=== PATIENT | male | born 1940 | race Caucasian/White ===

== ENCOUNTER → 2016-12-11 | Outpatient (CLI) | payer MEDICARE, OTHER ==
[~2016-12-11] MED LIST: HCT25T PO; LISI10TA PO
--- NOTE | 2016-12-11 17:07 | Diagnostic Imaging Report ---
PROCEDURE: MRI left joint lower extremity without contrast. TECHNIQUE: Multiplanar, multisequence MR imaging of the left knee was performed without contrast. COMPARISON: None available. INDICATION: Chronic left knee pain and stiffness. FINDINGS: MENISCI Medial meniscus: Degenerative free edge truncation of the posterior horn of the medial meniscus. Irregularity of the superior articular surface of the posterior horn is also likely due to degenerative tearing. Degenerative truncation of the free edge of the body of the medial meniscus. Body of the medial meniscus is partially extruded into the medial gutter. Lateral meniscus: Normal. LIGAMENTS ACL: ACL is intact with mild mucoid degeneration. PCL: Intact. MCL: Intact. LCL: The lateral collateral ligamentous complex is intact. EXTENSOR MECHANISM The extensor mechanism is intact. CARTILAGE Medial compartment: Diffuse chondral wear throughout the medial compartment, with a few scattered foci of full-thickness chondromalacia in the central weightbearing portion. Lateral compartment: The lateral compartment articular cartilage is preserved without high-grade chondromalacia. Patellofemoral compartment: Low-grade partial-thickness surface fibrillation of the patellar apex articular cartilage. No full-thickness chondromalacia in the patellofemoral compartment. BONE No fracture, stress fracture or osteonecrosis. SOFT TISSUE: No knee joint effusion. Small Tabares's cyst. IMPRESSION: 1. Mild degenerative free edge tearing of the posterior horn and body of the medial meniscus. No displaced meniscal fragments. 2. Diffuse chondral wear throughout the medial compartment with a few scattered foci of superimposed full-thickness chondral fissuring in the weightbearing portion of the medial femoral condyle. 3. Low-grade partial-thickness chondral loss in the patella. 4. Small Tabares's cyst. Dictated by: Dictated on workstation # [id number]
== END ==
LOC: RAD 16:04
PROVIDERS: ATTEND Orthopaedic Surgery
DX: M23.8X2 Other internal derangements of left knee (principal); M71.22 Synovial cyst of popliteal space [Baker], left knee
CPT/HCPCS: 73721

== ENCOUNTER 2017-01-16 10:20 | Outpatient (RCR) | payer MEDICARE, OTHER | END 2017-02-12 08:36 | disposition home or self-care (01) | PROVIDERS: ATTEND Orthopaedic Surgery | DX: M25.562 Pain in left knee (principal); M25.662 Stiffness of left knee, not elsewhere classified ==

== ENCOUNTER 2017-03-19 08:21 | Emergency (ER) | payer MEDICARE, OTHER ==
[~2017-03-19] VITALS: Ht 185.4 cm; Wt 80.7 kg
[2017-03-19] MEDS ORDERED: LACTATED RINGERS 1,000 ML IV ONE (08:23)
[2017-03-19] MEDS ORDERED: FAMOTIDINE 20MG/2ML IV (PEPCID) IV STA (08:23)
[2017-03-19] MEDS ORDERED: ONDANSETRON 4 MG/2 ML (SDV) Z0FRAN IVP ONE (08:30)
[2017-03-19 08:40] LABS: BASOPHILS % (AUTO) 0 % (0-10); EOSINOPHILS % (AUTO) 0 % (0-10); LYMPHOCYTES # (AUTO) 1.6 X 10^3 (1.0-4.0); LYMPHOCYTES % (AUTO) 15 % (12-44); MEAN CORPUSCULAR HEMOGLOBIN 29 PG (25-34); MEAN CORPUSCULAR HGB CONC 35 G/DL (32-36); MEAN CORPUSCULAR VOLUME 85 FL (80-99); MEAN PLATELET VOLUME 11.1 FL (7.4-10.4); MONOCYTES # (AUTO) 0.6 X 10^3 (0.0-1.0); MONOCYTES % (AUTO) 6 % (0-12); NEUTROPHILS # (AUTO) 8.2 X 10^3 (1.8-7.8); NEUTROPHILS % (AUTO) 79 % (42-75); PLATELET COUNT 317 10^3/uL (130-400); RED CELL DISTRIBUTION WIDTH 14.9 % (10.0-14.5); WHITE BLOOD COUNT 10.3 10^3/uL (4.3-11.0)
[2017-03-19] MEDS ORDERED: PANTOPRAZOLE 40 MG/10 ML (PROTONIX) VIAL IV ONE (08:45)
[2017-03-19] MEDS ORDERED: SCOPOLAMINE 1.5 MG (TRANSDERM-SCOP) PATCH TD ONE (08:45)
[2017-03-19] MEDS ORDERED: MECLIZINE 25 MG (ANTIVERT) TAB PO ONE (08:45)
[2017-03-19 08:52] LABS: PROTHROMBIN TIME PATIENT 12.8 SEC (12.2-14.7)
[2017-03-19 08:59] LABS: ALANINE AMINOTRANSFERASE 16 U/L (0-55); ALBUMIN 4.2 GM/DL (3.2-4.5); AMYLASE 46 U/L (25-125); ANION GAP 14 MMOL/L (5-14); ASPARTATE AMINO TRANSFERASE 19 U/L (5-34); BLOOD UREA NITROGEN 14 MG/DL (7-18); BUN/CREATININE RATIO 17; CALCIUM 9.9 MG/DL (8.5-10.1); CARBON DIOXIDE 25 MMOL/L (21-32); CHLORIDE 98 MMOL/L (98-107); CREATININE SERUM 0.84 MG/DL (0.60-1.30); GFR ESTIMATED > 60; GLUCOSE 153 MG/DL (70-105); LIPASE 15 U/L (8-78); POTASSIUM 3.2 MMOL/L (3.6-5.0); SODIUM 137 MMOL/L (135-145); TOTAL PROTEIN 7.3 GM/DL (6.4-8.2)
--- NOTE | 2017-03-19 09:16 | ED General ---
General Chief Complaint: Abdominal/GI Problems Stated Complaint: WEAKNESS Nursing Triage Note: PT TO RM 8 BY [facility] WITH CC OF VOMITING AND WEAKNESS FOR A COUPLE DAYS. Nursing Sepsis Screen: No Definite Risk Source of Information: Patient, EMS History of Present Illness Time Seen by Provider: 08:22 Initial Comments PT ARRIVES VIA EMS FROM HOME PT STATES HE ROLLED OVER AND WAS GETTING OUT OF BED YESTERDAY MORNING AND SUDDENLY BECAME VERY DIZZY--STATES IS A SPINNING SENSATION DIZZINESS IS MUCH WORSE WITH ANY MOVEMENT AND IS BETTER IF HE LAYS STILL WAS UNABLE TO STAND/ AMBULATE TODAY DUE TO DIZZINESS AFTER THE DIZZINESS STARTED, THEN HE BECAME NAUSEATED AND VOMITED A COUPLE OF TIMES TODAY--EMS GAVE ZOFRAN 4 MG WITH SOME IMPROVEMENT IN NAUSEA SYMPTOMS ARE WORSE TODAY NO HEADACHE NO VISION CHANGES NO CHEST PAIN NO SHORTNESS OF BREATH NO PALPITATIONS NO PARESTHESIAS OR MOTOR DEFICITS NO SWEATS HAS MILD EPIGASTRIC DISCOMFORT / "HEARTBURN" SINCE HE THREW UP PT WAS SEEN BY DR. STEINBERG YESTERDAY FOR ROUTINE EXAM AND MENTIONED DIZZINESS-- THOUGHT WAS DUE TO PT'S ELEVATED BP IN THE OFFICE. NO TESTS OR RX PT HAS MRI OF LOWER BACK SCHEDULED TODAY FOR CHRONIC BACK PAIN--HAD BACK SURGERY A COUPLE OF YEARS AGO, AND IS HAVING PAIN AGAIN PT ALSO HAS CHRONIC NECK PAIN BUT IS NOT HURTING NOW. PCP: DR. STEINBERG Allergies and Home Medications Allergies Coded Allergies: Meperidine (Unverified Allergy, Mild, 09/08/08) Home Medications Famotidine 40 Mg Tablet, 40 MG PO DAILY, #30 Prescribed by: ROGELIO SAMPSON on 03/19/17 1011 Hydrochlorothiazide 25 Mg Tab, 25 MG PO DAILY, (Reported) Lisinopril 10 Mg Tablet, 10 MG PO DAILY, (Reported) Meclizine HCl 25 Mg Tablet, 25-50 MG PO Q6H, #30 Prescribed by: ROGELIO SAMPSON on 03/19/17 1011 Ondansetron 4 Mg Tab.rapdis, 4 MG PO Q4H, #10 Prescribed by: ROGELIO SAMPSON on 03/19/17 1012 Scopolamine 1 Each Patch.td72, 1 EACH TD Q72 HOURS, #3 Prescribed by: ROGELIO SAMPSON on 03/19/17 1011 Constitutional: see HPI, No diaphoresis, dizziness, No fever, No malaise, No weakness EENTM: no symptoms reported Respiratory: no symptoms reported Cardiovascular: no symptoms reported Gastrointestinal: see HPI, No abdominal pain, nausea, vomiting Genitourinary: no symptoms reported Musculoskeletal: no symptoms reported Skin: no symptoms reported Psychiatric/Neurological: No Symptoms Reported Hematologic/Lymphatic: No Symptoms Reported Past Kukeivd-Ncqpve-Mlsndn Hx Patient Social History Alcohol Use: Rarely Uses Alcohol Beverage of Choice: Beer Recreational Drug Use: No Smoking Status: Never a Smoker Recent Foreign Travel: No Contact w/Someone Who Travel: No Recent Infectious Disease Expo: No Recent Hopitalizations: No Seasonal Allergies Seasonal Allergies: No Surgeries History of Surgeries: Yes (BACK, HERNIA X'S 3, SPLENECTOMY;BILATERAL SHOULDER SCOPES; BILATERAL CARPAL TUNNEL SURGERY: BILATERAL TRIGGER FINGER SURGERY; LEFT KNEE SCOPE) Surgeries: Abdominal, Orthopedic Respiratory History of Respiratory Disorde: No Cardiovascular History of Cardiac Disorders: Yes Cardiac Disorders: Hypertension Neurological History of Neurological Disord: No Reproductive System Hx Reproductive Disorders: No Sexually Transmitted Disease: No Genitourinary History of Genitourinary Disor: Yes Genitourinary Disorders: Prostate Problems Gastrointestinal History of Gastrointestinal Di: Yes (HX OF SPASTIC COLON) Gastrointestinal Disorders: Abdominal Hernia Musculoskeletal History of Musculoskeletal Dis: Yes (CHRONIC NECK AND BACK PAIN ) Musculoskeletal Disorders: Arthritis, Chronic Back Pain Endocrine History of Endocrine Disorders: No HEENT History of HEENT Disorders: Yes Hearing Impairment: Hard of Hearing, Bilateral Hearing Aide Cancer History of Cancer: No Psychosocial History of Psychiatric Problem: No Integumentary History of Skin or Integumenta: No Blood Transfusions History of Blood Disorders: No Physical Exam Vital Signs Vital Sign - Last 12Hours 03/19/17 08:28 Temp 97.7 Pulse 65 Resp 18 B/P (MAP) 148/77 Pulse Ox 98 O2 Delivery Room Air Capillary Refill : Less Than 3 Seconds General Appearance: No Apparent Distress, WD/WN HEENT: PERRL/EOMI, TMs Normal (EXCEPT MILDLY SCLEROTIC), Normal ENT Inspection , Pharynx Normal, Other (BILATERAL HEARING AIDS PRESENT) Neck: Full Range of Motion, Normal Inspection, Non Tender, Supple, No Carotid Bruit, No JVD Respiratory: Normal Breath Sounds, No Accessory Muscle Use, No Respiratory Distress Cardiovascular: Regular Rate, Rhythm, No Edema, No JVD, No Murmur, Normal Peripheral Pulses Gastrointestinal: Normal Bowel Sounds, No Organomegaly, No Pulsatile Mass, Non Tender, Soft Back: No CVA Tenderness Extremity: Normal Capillary Refill, Normal Inspection, Normal Range of Motion, Non Tender, No Calf Tenderness, No Pedal Edema Neurologic/Psychiatric: Alert, Oriented x3, No Motor/Sensory Deficits, Normal Mood/Affect, 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4-10.4 FL Neutrophils (%) (Auto) 79 H 42-75 % Lymphocytes (%) (Auto) 15 12-44 % Monocytes (%) (Auto) 6 0-12 % Eosinophils (%) (Auto) 0 0-10 % Basophils (%) (Auto) 0 0-10 % Neutrophils # (Auto) 8.2 H 1.8-7.8 X 10^3 Lymphocytes # (Auto) 1.6 1.0-4.0 X 10^3 Monocytes # (Auto) 0.6 0.0-1.0 X 10^3 Eosinophils # (Auto) 0.0 0.0-0.3 10^3/uL Basophils # (Auto) 0.0 0.0-0.1 10^3/uL Prothrombin Time 12.8 12.2-14.7 SEC INR Comment 1.0 0.8-1.4 Activated Partial Thromboplast Time 23 L 24-35 SEC Sodium Level 137 135-145 MMOL/L Potassium Level 3.2 L 3.6-5.0 MMOL/L Chloride Level 98 98-107 MMOL/L Carbon Dioxide Level 25 21-32 MMOL/L Anion Gap 14 5-14 MMOL/L Blood Urea Nitrogen 14 7-18 MG/DL Creatinine 0.84 0.60-1.30 MG/DL Estimat Glomerular Filtration Rate > 60 BUN/Creatinine Ratio 17 Glucose Level 153 H 70-105 MG/DL Calcium Level 9.9 8.5-10.1 MG/DL Magnesium Level 2.0 1.8-2.4 MG/DL Total Bilirubin 2.0 H 0.1-1.0 MG/DL Aspartate Amino Transf (AST/SGOT) 19 5-34 U/L Alanine Aminotransferase (ALT/SGPT) 16 0-55 U/L Alkaline Phosphatase 71 40-136 U/L Troponin I < 0.30 <0.30 NG/ML Total Protein 7.3 6.4-8.2 GM/DL Albumin 4.2 3.2-4.5 GM/DL Amylase Level 46 25-125 U/L Lipase 15 8-78 U/L TSH [place] Testing 0.90 0.35-4.94 UIU/ML Urine Color DELANEY H Urine Clarity SLIGHTLY CLOUDY Urine pH 7 5-9 Urine Specific [place] 1.015 L 1.016-1.022 Urine Protein 1+ H NEGATIVE Urine Glucose (UA) NEGATIVE NEGATIVE Urine Ketones 4+ H NEGATIVE Urine Nitrite NEGATIVE NEGATIVE Urine Bilirubin NEGATIVE NEGATIVE Urine Urobilinogen 1 NORMAL MG/DL Urine Leukocyte Esterase 1+ H NEGATIVE Urine RBC (Auto) NEGATIVE NEGATIVE Urine RBC RARE /HPF Urine WBC 0-2 /HPF Urine Squamous Epithelial Cells RARE /HPF Urine Crystals NONE /LPF Urine Bacteria NEGATIVE /HPF Urine Casts PRESENT /LPF Urine Hyaline Casts RARE /LPF Urine Mucus SMALL H /LPF Urine Culture Indicated NO My Orders Orders - ROGELIO SAMPSON DO Saline Lock/Iv-Start (03/19/17 08:23) Monitor-Rhythm Ecg Trace Only (03/19/17 08:23) Amylase (03/19/17 08:23) Cbc With Automated Diff (03/19/17 08:23) Comprehensive Metabolic Panel (03/19/17 08:23) Lipase (03/19/17 08:23) Ua Culture If Indicated (03/19/17 08:23) Saline Lock/Iv-Start (03/19/17 08:23) Lactated Ringers (Lr 1000 Ml Iv Solution (03/19/17 08:23) Ondansetron Injection (Zofran Injectio (03/19/17 08:30) Famotidine Injection (Pepcid Injection) (03/19/17 08:23) Pantoprazole Injection (Protonix Injecti (03/19/17 08:45) Scopolamine Patch (Transderm-Scop Patch) (03/19/17 08:45) Meclizine Tablet (Antivert Tablet) (03/19/17 08:45) Magnesium (03/19/17 08:37) Protime With Inr (03/19/17 08:37) Partial Thromboplastin Time (03/19/17 08:37) Thyroid Analyzer (03/19/17 08:37) Troponin I (03/19/17 08:37) Ct Head Wo (03/19/17 08:37) Ekg Tracing (03/19/17 09:53) Medications Given in ED Current Medications Medications Dose Ordered Sig/Josefa Route Start Time Stop Time Status Last Admin Dose Admin Lactated Ringer's 1,000 ml @ 0 mls/hr Q0M ONCE IV 03/19/17 08:23 03/19/17 08:25 DC 03/19/17 09:05 1,000 MLS/HR Meclizine HCl 50 mg ONCE ONCE PO 03/19/17 08:45 03/19/17 08:46 DC 03/19/17 09:06 50 MG Ondansetron HCl 4 mg ONCE ONCE IVP 03/19/17 08:30 03/19/17 08:31 DC 03/19/17 09:06 4 MG Pantoprazole 40 mg ONCE ONCE IV 03/19/17 08:45 03/19/17 08:46 DC 03/19/17 09:06 40 MG Scopolamine 1.5 mg ONCE ONCE TD 03/19/17 08:45 03/19/17 08:46 DC 03/19/17 09:06 1.5 MG Vital Signs/I&O Vital Sign - Last 12Hours 03/19/17 03/19/17 08:28 10:29 Temp 97.7 97.0 Pulse 65 60 Resp 18 18 B/P (MAP) 148/77 Pulse Ox 98 97 O2 Delivery Room Air Blood Pressure Mean: 100 Progress Note : Progress Note PT ABLE TO STAND AND AMBULATE A SHORT DISTANCE WITHOUT DIFFICULTY, ON HIS OWN PRIOR TO DISMISSAL NAUSEA RESOLVED AND DIZZINESS IMPROVED PRIOR TO DISMISSAL ECG Initial ECG Impression Time: 09:55 Initial ECG Rate: 58 Initial ECG Rhythm: Normal Sinus (PAC) Initial ECG Comparisson: No Previous ECG Available Diagnostic Imaging Comments CT HEAD--NO ACUTE PROCESS, CHRONIC CHANGES--PER RADIOLOGIST REPORT @ 0959 Reviewed: Reviewed by Me Departure Impression Impression: Primary Impression: Acute onset of vertigo with vomiting and inability to stand Disposition: 01 HOME, SELF-CARE Condition: Improved Departure-Patient Inst. Referrals: NO,LOCAL PHYSICIAN (PCP/Family) Primary Care Physician Patient Instructions: VERTIGO, Vertigo (a Type of Dizziness) (DC) Add. Discharge Instructions: SLOW POSITION CHANGES LOTS OF FLUIDS FOLLOW UP WITH YOUR DR IN 2-3 DAYS FOR FURTHER CARE RETURN TO ER IF WORSE All discharge instructions reviewed with patient and/or family. Voiced understanding. Scripts Ondansetron (Zofran Odt) 4 Mg Tab.rapdis 4 MG PO Q4H for Nausea/Vomiting, #10 TAB Prov: ROGELIO SAMPSON DO 03/19/17 Scopolamine (Transderm-Scop) 1 Each Patch.td72 1 EACH TD Q72 HOURS for Dizziness, #3 PATCH Prov: ROGELIO SAMPSON DO 03/19/17 Famotidine (Pepcid) 40 Mg Tablet 40 MG PO DAILY, #30 TAB Prov: ROGELIO SAMPSON DO 03/19/17 Meclizine HCl (Meclizine HCl) 25 Mg Tablet 25-50 MG PO Q6H for Dizziness, #30 TAB Prov: ROGELIO SAMPSON DO 03/19/17 ROGELIO SAMPSON DO Mar 19, 2017 09:16
[2017-03-19 09:20] LABS: TROPONIN I < 0.30 NG/ML (<0.30)
--- NOTE | 2017-03-19 09:38 | Diagnostic Imaging Report ---
PROCEDURE: CT head without contrast. TECHNIQUE: Multiple contiguous axial images were obtained through the brain without the use of intravenous contrast. INDICATION: Weakness and dizziness. No priors. FINDINGS: There is mild cerebral cortical atrophy not unremarkable given the age. There is also some mild periventricular white matter hypodensity, while nonspecific often attributed to the sequelae of chronic small vessel disease and also not felt to remarkable finding in a patient of this age. There was no evidence for focal or generalized cerebral edema. There is no mass or mass effect and there is no evidence for intracranial hemorrhage. No findings of elevation of the intracranial pressures. The orbits, sinuses and calvarium unremarkable. IMPRESSION: Mild chronic likely senescent change, no hemorrhage, edema or acute appearing abnormality. Dictated by: Dictated on workstation # [id number]
[2017-03-19 09:56] LABS: BILIRUBIN,URINE NEGATIVE (NEGATIVE); KETONES,URINE 4+ (NEGATIVE); LEUKOCYTE ESTERASE ,URINE 1+ (NEGATIVE); NITRITE,URINE NEGATIVE (NEGATIVE); PH,URINE 7 (5-9); PROTEIN,URINE 1+ (NEGATIVE); UROBILINOGEN,URINE 1 MG/DL (NORMAL)
[2017-03-19 10:05] LABS: HYALINE CASTS, URINE RARE /LPF; SQUAMOUS EPITHELIAL CELL,UR RARE /HPF; WBC,URINE 0-2 /HPF
[2017-03-19] MEDS ORDERED: MECL-106 PO (10:11)
[2017-03-19] MEDS ORDERED: FAMO40TA72 PO (10:11)
[2017-03-19] MEDS ORDERED: SCOP1PAT TD (10:11)
[2017-03-19] MEDS ORDERED: ONDA4TAB8 PO (10:12)
[2017-03-19 10:29] VITALS: BP 135/70
--- OUTSIDE RECORDS SUMMARY | 2017-03-19 11:13 | XMS REPORT | Continuity of Care Document ---
Author Author [facility] Address Unknown Phone Unavailable Allergies Active Description Code Type Severity Reaction Onset Reported/Identified Relationship to Patient Clinical Status Yes meperidine [id number] Drug Allergy Mild N/A 09/08/2008 Medications Problems Date Dx Coded Attending Type Code Diagnosis Diagnosed By 08/22/2011 Ot 401.9 HYPERTENSION NOS 02/28/2012 Ot 702.0 ACTINIC KERATOSIS 02/28/2012 Ot 706.2 SEBACEOUS CYST 06/01/2013 MITCHELL ALDANA DO V04.81 FLU SHOT 01/24/2015 Ot 719.47 01/24/2015 Ot 401.9 01/24/2015 Ot 706.2 01/24/2015 Ot 709.9 01/24/2015 Ot V72.63 01/24/2015 Ot V72.81 01/24/2015 Ot V74.8 02/14/2015 Ot 719.47 02/14/2015 Ot 401.9 02/14/2015 Ot 706.2 02/14/2015 Ot 709.9 02/14/2015 Ot V72.63 02/14/2015 Ot V72.81 02/14/2015 Ot V74.8 02/14/2015 NICOLE DO, PASCUAL F Ot 722.52 02/16/2015 NICOLE DO, PASCUAL F Ot 722.52 02/18/2015 NICOLE DO, PASCUAL F Ot 721.3 02/18/2015 NICOLE DO, PASCUAL F Ot V57.1 03/22/2015 NICOLE DO, PASCUAL F Ot 722.52 03/25/2015 NICOLE DO, PASCUAL F Ot 721.3 03/25/2015 NICOLE DO, PASCUAL F Ot V57.1 04/20/2015 NICOLE DO, PASCUAL F Ot 721.3 04/20/2015 NICOLE DO, PASCUAL F Ot V57.1 04/25/2015 NICOLE DO, PASCUAL F Ot 721.3 LUMBOSACRAL SPONDYLOSIS 04/25/2015 PASCUAL RIVERA DO Ot V57.1 PHYSICAL THERAPY NEC 09/19/2015 Ot 719.47 09/19/2015 Ot 401.9 09/19/2015 Ot 706.2 09/19/2015 Ot 709.9 09/19/2015 Ot V72.63 09/19/2015 Ot V72.81 09/19/2015 Ot V74.8 09/19/2015 PASCUAL RIVERA DO Ot 722.52 10/12/2015 BOYD CHAIREZ FACC, ALI FACP CCDS Ot I10 10/12/2015 BOYD CHAIREZ FACC, ALI FACP CCDS Ot I49.9 10/12/2015 BOYD CHAIREZ FACC, ALI FACP CCDS Ot M54.5 10/13/2015 BOYD CHAIREZ FACC, ALI FACP CCDS Ot I10 10/13/2015 BOYD CHAIREZ FACC, ALI FACP CCDS Ot I49.9 10/13/2015 BOYD CHAIREZ FACC, ALI FACP CCDS Ot M54.5 01/05/2016 JAQUI GATES Ot M62.81 MUSCLE WEAKNESS (GENERALIZED) 01/05/2016 JAQUI GATES Ot Z98.1 ARTHRODESIS STATUS 12/11/2016 Ot 719.47 JOINT PAIN-ANKLE 12/11/2016 Ot 401.9 HYPERTENSION NOS 12/11/2016 Ot 706.2 SEBACEOUS CYST 12/11/2016 Ot 709.9 SKIN DISORDER NOS 12/11/2016 Ot V72.63 PRE-PROCEDURAL LABORATORY EXAMINATION 12/11/2016 Ot V72.81 [id number] CARDIOVASCULAR 12/11/2016 Ot V74.8 SCREEN-BACTERIAL DIS NEC 12/11/2016 PASCUAL RIVERA DO Ot 722.52 LUMB/LUMBOSAC DISC DEGEN 12/11/2016 BOYD CHAIREZ FACC, ALI FACP CCDS Ot I10 ESSENTIAL (PRIMARY) HYPERTENSION 12/11/2016 BOYD CHAIREZ FACC, ALI FACP CCDS Ot I49.9 CARDIAC ARRHYTHMIA, UNSPECIFIED 12/11/2016 BOYD CHAIREZ FACC, ALI FACP CCDS Ot M54.5 LOW BACK PAIN 12/11/2016 BOYD CHAIREZ FACC, ALI FACP CCDS Ot I10 ESSENTIAL (PRIMARY) HYPERTENSION 12/11/2016 BOYD CHAIREZ FACC, ALI FACP CCDS Ot I49.9 CARDIAC ARRHYTHMIA, UNSPECIFIED 12/11/2016 BOYD CHAIREZ FACC, MACHO BEGUM CCDS Ot M54.5 LOW BACK PAIN 12/12/2016 PASCUAL RIVERA DO Ot M23.8X2 OTHER INTERNAL DERANGEMENTS OF LEFT KNEE 12/12/2016 NICOLE GAMEZ, PASCUAL Castillo Ot 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 Visit Date/Time Discharge Status Pt. Type Provider Facility Loc./Unit Complaint [id number] 06/01/2013 08:58:00 06/01/2013 23: 59:59 CLS Outpatient MITCHELL ALDANA DO [id number] 06/02/2012 13:45:01 RECURRING [id number] 01/16/2017 10:20:00 2016 08:36:00 DIS Outpatient NICOLE DO PASCUAL Castillo [facility] RE[facility] LT KNEE PAIN AND STIFFNESS [id number] 12/11/2016 16:04:00 2016 23:59:59 CLS Outpatient NICOLE DO PASCUAL Castillo [facility] RAD LT KNEE PAIN,STIFFNESS/ WEAKNESS [id number] 01/05/2016 12:53:00 2015 14:26:00 DIS Outpatient JAQUI GATES [facility] RE[facility] S/P L3-5 FUSION; L LEG WEAKNESS [id number] 09/22/2015 07:29:00 2015 23:59:59 CLS Outpatient BOYD CHAIREZ FACC, MACHO BEGUM CCDS [facility] CARD CARDIAC ARRTHYMIA [id number] 09/19/2015 09:38:00 2015 23:59:59 CLS Outpatient BOYD CHAIREZ FACC, MACHO BEGUM CCDS [facility] CARD CARDIAC ARRHYTMIA [id number] 03/31/2015 11:15:00 2014 14:13:00 DIS Outpatient PASCUAL RIVERA DO [facility] RE[facility] LUMBAR SPONDYLOSIS;LUMBAR SPINAL STENOSIS [id number] 01/24/2015 10:37:00 2014 23:59:59 CLS Outpatient PASCUAL RIVERA DO [facility] RAD DDD [id number] 01/24/2015 10:36:00 Document Registration [id number] 01/24/2015 10:36:00 Document Registration [id number] 01/24/2015 10:36:00 Document Registration [id number] 08/22/2011 10:24:00 Document Registration
--- OUTSIDE RECORDS SUMMARY | 2017-03-19 11:13 | XMS REPORT ---
Author MITCHELL Carrasquillo Organization [employer] Address Unknown Phone Unavailable Care Team Providers Care Truck Guard Name Role Phone MITCHELL ALDANA CP Unavailable Allergies No Known Allergies Problems Problem Type Condition Code Onset Dates Condition Status Assessment Encounter for immunization Z23 Active Problem Need for prophylactic vaccination and inoculation, Influenza V04.81 Active Medications No Known Medications Procedures Procedure Coding System Code Date SINGLE IMMUNIZATION ADMIN CPT-4 51341 May 16, 2015 FLUARIX QUAD (3 & UP)-GSK-2014 CPT-4 94433 May 16, 2015 Results No Known Results Immunizations Vaccine Administration Date FLUARIX QUAD (3 & UP)-GSK-2014May 16, 2015 Summary Purpose [employer] Submission
--- OUTSIDE RECORDS SUMMARY | 2017-03-19 11:13 | XMS REPORT ---
Author MITCHELL Carrasquillo [employer] Address Unknown Phone Unavailable Care Team Providers Care Manager Of Product Name Role Phone MITCHELL ALDANA CP Unavailable Allergies, Adverse Reactions, Alerts Substance Reaction Event Type N.K.D.A. Info Not Available Non Drug Allergy Problems Problem Type Condition Code Onset Dates Condition Status Assessment Encounter for immunization Z23 Active Problem Need for prophylactic vaccination and inoculation, Influenza V04.81 Active Medications No Known Medications Procedures Procedure Coding System Code Date SINGLE IMMUNIZATION ADMIN CPT-4 93876 May 29, 2016 FLUZONE HIGH DOSE 65 AND UP 2015 CPT-4 93820 May 29, 2016 Results No Known Results Immunizations Vaccine Administration Date FLUZONE HIGH DOSE 65 AND UP 2015May 29, 2016 Summary Purpose [employer] Submission
== END 2017-03-19 10:29 | disposition home or self-care (01) ==
LOC: EDUNIT# 08:21 → ER 08:22
DX: R42 Dizziness and giddiness (principal); R11.2 Nausea with vomiting, unspecified; R26.89 Other abnormalities of gait and mobility; I10 Essential (primary) hypertension; M19.90 Unspecified osteoarthritis, unspecified site; Z87.19 Personal history of other diseases of the digestive system; Z90.81 Acquired absence of spleen
CPT/HCPCS: 36415; 70450; 80053; 81000; 82150; 83690; 83735; 84443; 84484; 85025; 85610; 85730; 93005; 93041; 96361; 96374; 96375

== ENCOUNTER → 2017-06-19 | Outpatient (CLI) | payer MEDICARE, OTHER ==
[~2017-06-19] MED LIST changes: +FAMO40TA72 PO; +MECL-106 PO; +ONDA4TAB8 PO; +SCOP1PAT TD
--- NOTE | 2017-06-19 19:20 | Diagnostic Imaging Report ---
PROCEDURE: US Carotid Duplex Bilateral. TECHNIQUE: Multiple real-time grayscale images were obtained over the carotid arteries in various projections bilaterally. Additional duplex Doppler and color Doppler images were also obtained. INDICATION: Dizziness. FINDINGS: There is minimal plaque along the carotid bifurcation seen, more on the left side. Color Doppler demonstrates patency of the common, internal and external carotid arteries bilaterally. There is antegrade flow in the vertebral arteries. Peak systolic velocities in the right ICA are 92 cm/s, 90 cm/s and 80 cm/s from proximal to distal and on the left 84 cm/s, 90 cm/s, and 103 cm/s. ICA/CCA ratios are up to 1 on the right and 1.1 on the left. IMPRESSION: Minimal plaque seen. Underlying estimated degree of stenosis is in the range of 0-25% bilaterally. Dictated on workstation # [id number]
== END ==
LOC: RAD 14:39
PROVIDERS: ATTEND Family Medicine
DX: R42 Dizziness and giddiness (principal)
CPT/HCPCS: 93880

== ENCOUNTER 2018-02-06 14:13 | Outpatient (RCR) | payer MEDICARE, OTHER ==
[~2018-02-06 14:13] MED LIST changes: -SCOP1PAT TD; +SCOP1PAT11 TD
== END 2018-02-06 16:33 | disposition home or self-care (01) ==
PROVIDERS: ATTEND Physician Assistant
DX: M54.5 Low back pain (principal); Z98.1 Arthrodesis status

== ENCOUNTER → 2018-11-06 | Outpatient (CLI) | payer MEDICARE, OTHER ==
[~2018-11-06] MED LIST changes: +BARIUM SUSPENSION 105% (LIQUID POLIBAR PLUS) 240 ML/DOSE PO ONE; +BARIUM SUSPENSION 60% (LIQUID EZ PAQUE) 240 ML DOSE PO ONE
--- NOTE | 2018-11-06 12:26 | Diagnostic Imaging Report ---
INDICATION: Gastroesophageal reflux. FINDINGS: The preliminary radiograph demonstrates a nonspecific bowel gas pattern. The esophageal motility was assessed fluoroscopically. There is relatively satisfactory efficacy of prior peristaltic wave. There are a few tertiary contractions likely reflecting some mild presbyesophagus. Esophageal mucosa is unremarkable. There are no intrinsic or extrinsic esophageal masses. There is a small hiatal hernia. Stomach fills and empties in normal fashion. There are no gastric ulcerations or erosions. Duodenal bulb is without deformity. There is a duodenal diverticulum. There is no significant gastroesophageal reflux appreciated during the exam despite evocative maneuvers. IMPRESSION: There are a few tertiary contractions compatible with some mild presbyesophagus. Small hiatal hernia. Duodenal diverticula Otherwise unremarkable upper GI. Dictated by: Dictated on workstation # [id number]
== END ==
LOC: RAD 10:08
PROVIDERS: ATTEND Family Medicine
DX: K21.9 Gastro-esophageal reflux disease without esophagitis (principal); K44.9 Diaphragmatic hernia without obstruction or gangrene; K57.10 Diverticulosis of small intestine without perforation or abscess without bleeding; K22.4 Dyskinesia of esophagus
CPT/HCPCS: 74241

== ENCOUNTER → 2019-12-03 | Outpatient (CLI) | payer MEDICARE, OTHER ==
[~2019-12-03] MED LIST changes: -BARIUM SUSPENSION 105% (LIQUID POLIBAR PLUS) 240 ML/DOSE PO ONE; -BARIUM SUSPENSION 60% (LIQUID EZ PAQUE) 240 ML DOSE PO ONE; +CATHETER FLUSH 10 ML SYR IV PRN; -MECL-106 PO; +MECL-149 PO
--- NOTE | 2019-12-03 12:26 | Diagnostic Imaging Report ---
EXAMINATION: CT Abdomen Pelvis without contrast. TECHNIQUE: Multiple contiguous axial images were obtained through the abdomen and pelvis without the use of intravenous contrast. All CT scans use one or more of the following dose optimizing techniques: automated exposure control, MA and/or KvP adjustment based on a patient size and exam type, or iterative reconstruction. INDICATION: Prostate cancer. COMPARISON: None available. FINDINGS: Limited views of the lower thorax are unremarkable. The liver is normal without focal lesion. There is no biliary ductal dilation. Gallbladder is normal. Pancreas is normal. Spleen is abnormal in comprised of several small nodules with calcifications suspected to represent sequela of trauma versus congenital. Adrenal glands are normal. There is a 4.8 x 4.0 cm duodenal diverticulum. The kidneys are normal. There is no hydronephrosis. Urinary bladder is normal. Visualized bowel is normal in caliber without obstruction or inflammation. There are postsurgical changes of hernia repair in the lower abdomen. There is extensive diverticulosis but no diverticulitis. No free fluid or air. No abdominal or pelvic lymphadenopathy. Aorta is normal in caliber without aneurysm. There are no suspicious osseus lesions. There is L3-L5 instrumented spinal fusion. IMPRESSION: 1. No metastatic disease identified in the abdomen or pelvis. Dictated by: Dictated on workstation # [id number]
--- NOTE | 2019-12-03 16:37 | Diagnostic Imaging Report ---
EXAMINATION: Nuclear medicine bone scan. INDICATION: Prostate cancer. TECHNIQUE: This study was performed following the administration of 26 mCi of 99m technetium MDP. Anterior and posterior whole body images were obtained as well as spot lateral views of the skull, cervical spine, and bony thorax. COMPARISON: There are no prior nuclear medicine studies available for comparison. FINDINGS: On the spot lateral views of the thorax, there are small areas of slightly increased uptake involving the anterior aspects of the left 7th, 8th, and 9th ribs. There is also a somewhat more conspicuous area of increased uptake in the midportion of the right 10th rib. These findings are difficult to appreciate on the whole body images and I am not convinced that they are related to metastatic lesions. There is also increased uptake in the region of the spinous processes of the mid lumbar spine. In reviewing the CT abdomen/pelvis exam performed in conjunction with this study, there was some degenerative disease of the spinous processes of L2 and L3 but there was no sign of bony destructive lesion. There is no other abnormal uptake to suggest neoplastic disease. There is increased activity involving the shoulder and sternoclavicular joints as well as the knee joints. These findings are probably degenerative in nature. Both kidneys do show excretion of the radiotracer. IMPRESSION: There is no evidence for metastatic disease. The abnormal uptake involving the spinous processes of L2 and L3 is more likely due to degenerative disease than to metastatic disease. The vague areas of uptake involving the ribs are also unlikely to be related to metastatic disease. Dictated by: Dictated on workstation # [id number]
== END ==
LOC: CARD 11:38
PROVIDERS: ATTEND Urology
DX: C61 Malignant neoplasm of prostate (principal)
CPT/HCPCS: 74176; 78306

== ENCOUNTER 2019-12-30 12:36 | Outpatient (RCR) | payer MEDICARE, OTHER ==
[~2019-12-30 12:36] MED LIST changes: -CATHETER FLUSH 10 ML SYR IV PRN
== END 2020-03-29 | disposition home or self-care (01) ==
LOC: ONC 12:36
PROVIDERS: ATTEND Radiology Radiation Oncology
DX: C61 Malignant neoplasm of prostate (principal); I10 Essential (primary) hypertension; M19.90 Unspecified osteoarthritis, unspecified site; K21.9 Gastro-esophageal reflux disease without esophagitis; G89.29 Other chronic pain; M54.5 Low back pain; Z90.81 Acquired absence of spleen; Z98.890 Other specified postprocedural states
CPT/HCPCS: 99204; 99214

== ENCOUNTER 2020-04-22 10:45 | Outpatient (CLI) | payer MEDICARE, OTHER ==
[~2020-04-22] VITALS: Ht 188 cm; Wt 81.8 kg
[2020-04-22] MEDS ORDERED: HYDR50TA3 PO (11:16)
[2020-04-22] MEDS ORDERED: LISI10TA2 PO (11:16)
== END 2020-04-22 11:27 | disposition home or self-care (01) ==
LOC: PREOP 10:45
PROVIDERS: ATTEND Urology
DX: Z01.818 Encounter for other preprocedural examination (principal)

== ENCOUNTER 2020-04-26 06:39 | Day surgery (SDC) | payer MEDICARE, OTHER ==
[~2020-04-26] VITALS: Ht 188 cm; Wt 81.8 kg
[2020-04-26] VITALS (11 sets, daily range): BP systolic 91–165; BP diastolic 59–92
[~2020-04-26 06:39] MED LIST changes: +HYDR50TA3 PO; +LISI10TA2 PO
--- NOTE | 2020-04-26 07:11 | Progress Note-Pre Operative ---
Pre-Operative Progress Note H&P Reviewed The H&P was reviewed, patient examined and no changes noted. Date Seen by Provider: Apr 26, 2020 Time Seen by Provider: 07:10 Date H&P Reviewed: Apr 26, 2020 Time H&P Reviewed: 07:11 Pre-Operative Diagnosis: CA PROSTATE URIEL KATZ MD Apr 26, 2020 07:11
--- NOTE | 2020-04-26 07:18 | Progress Note-Post Operative ---
Post-Operative Progess Note Surgeon (s)/Orchard Manager (s) Surgeon URIEL KATZ MD Orchard Manager: NONE Pre-Operative Diagnosis CA PROSTATE Post-Operative Diagnosis SAME Procedure & Operative Findings Date of Procedure 04/26/20 Procedure Performed/Findings SPACE OAR PLACEMENT Anesthesia Type GENERAL Estimated Blood Loss Estimated blood loss (mL): NONE Specimens/Packing Specimens Removed NONE Packing: NONE URIEL KATZ MD Apr 26, 2020 07:18
--- NOTE | 2020-04-26 07:20 | Discharge Inst-Urology ---
Discharge Inst-Urology Reconcile Patient Problems Problems Reviewed?: Yes Final Diagnosis CA PROSTATE Patient Instructions/Follow Up Plan/Assessment/Instructions Please make appointment to been seen in office in 2 weeks. Rest for 48 hours Increase oral fluids for 48 hours and then as needed. Diet as tolerated. If questions or concerns contact your physician Or seek help at emergency department. URIEL KATZ MD Apr 26, 2020 07:20
[2020-04-26] MEDS ORDERED: LACTATED RINGERS 1,000 ML IV PRN (07:52)
[2020-04-26] MEDS ORDERED: MIDAZOLAM 2 MG/2 ML (VERSED) VIAL ONE (07:54)
[2020-04-26] MEDS ORDERED: ONDANSETRON 4 MG/2 ML (SDV) Z0FRAN ONE (07:54)
[2020-04-26] MEDS ORDERED: fentaNYL INJECTION 100 MCG/2 ML AMP ONE (07:54)
[2020-04-26] MEDS ORDERED: LIDOCAINE PF 2% 5 ML (XYLOCAINE) VIAL ONE (07:54)
[2020-04-26] MEDS ORDERED: SEVOFLURANE (ULTANE) 15 ML INHAL SOLN ONE ×2 (07:54→08:22)
[2020-04-26] MEDS ORDERED: proPOfol 200 MG/20 ML (DIPRIVAN) VIAL IV ONE (07:54)
[2020-04-26] MEDS ORDERED: LEVOFLOXACIN 250 MG/D5W 50 ML (PRE-MIX) IV ONE (08:00)
[2020-04-26] MEDS ORDERED: morphine INJ 10 MG/ML 1ML (SYR OR VIAL) IVP ONE (08:30)
[2020-04-26] MEDS ORDERED: ONDANSETRON 4 MG/2 ML (SDV) Z0FRAN IVP PRN (08:30)
--- NOTE | 2020-04-26 09:25 | NUR ---
TO AMB SURG FROM PAR PER CART. ALERT, CHEERFUL, DENIES COMPLAINTS. NO BLEEDING AT RECTUM. PO FLUIDS PROVIDED.
--- NOTE | 2020-04-26 09:38 | Anesthesia-General Post-Op ---
General Patient Condition Mental Status/LOC: Same as Preop Cardiovascular: Satisfactory Nausea/Vomiting: Absent Respiratory: Satisfactory Pain: Controlled Complications: Absent Post Op Complications Complications None Follow Up Care/Instructions Patient Instructions None needed. Anesthesia/Patient Condition Patient Condition Patient is doing well, no complaints, stable vital signs, no apparent adverse anesthesia problems. No complications reported per nursing. JAMAL MARROQUIN CRNA Apr 26, 2020 09:38
[2020-04-26] MEDS ORDERED: CIPR-225 PO (10:07)
--- NOTE | 2020-04-26 10:38 | NUR ---
TAKING PO FLUIDS WITHOUT PROBLEM, REMAINS ALERT AND DENIES PAIN OR NAUSEA. NO BLEEDING FROM RECTUM. STATES HE IS READY FOR DISMISSAL. [facility] CALLED TO [facility].
== END 2020-04-26 10:38 | disposition home or self-care (01) ==
LOC: SDC 06:39
PROVIDERS: ATTEND Urology
DX: C61 Malignant neoplasm of prostate (principal); Z11.2 Encounter for screening for other bacterial diseases; I10 Essential (primary) hypertension; M19.91 Primary osteoarthritis, unspecified site; N52.9 Male erectile dysfunction, unspecified; K21.9 Gastro-esophageal reflux disease without esophagitis; Z79.899 Other long term (current) drug therapy; Z88.8 Allergy status to other drugs, medicaments and biological substances
CPT/HCPCS: 87081

== ENCOUNTER 2020-07-20 09:02 | Outpatient (RCR) | payer MEDICARE, OTHER ==
[~2020-07-20 09:02] MED LIST changes: +CIPR-225 PO
== END 2020-08-08 | disposition home or self-care (01) ==
LOC: ONC 09:02
PROVIDERS: ATTEND Radiology Radiation Oncology
DX: C61 Malignant neoplasm of prostate (principal); I10 Essential (primary) hypertension; M54.5 Low back pain; M19.90 Unspecified osteoarthritis, unspecified site; K21.9 Gastro-esophageal reflux disease without esophagitis; G89.29 Other chronic pain; Z90.81 Acquired absence of spleen; Z98.890 Other specified postprocedural states
CPT/HCPCS: 77300; 77301; 77334; 77336; 77338; 77385

== ENCOUNTER 2020-09-01 14:27 | Outpatient (RCR) | payer MEDICARE, OTHER ==
[~2020-09-01 14:27] MED LIST changes: -HYDR50TA3 PO; +HYDR50TA6 PO; -LISI10TA2 PO; +LISI10TA25 PO
== END 2020-11-30 | disposition home or self-care (01) ==
LOC: ONC 14:27
PROVIDERS: ATTEND Radiology Radiation Oncology
DX: Z53.9 Procedure and treatment not carried out, unspecified reason (principal)
CPT/HCPCS: 99213

== ENCOUNTER → 2021-10-13 | Outpatient (CLI) | payer MEDICARE, OTHER ==
[~2021-10-13] MED LIST changes: +SCOP1PAT10 TD; -SCOP1PAT11 TD
--- NOTE | 2021-10-13 10:06 | Diagnostic Imaging Report ---
INDICATION: Fall with left leg pain. TIME OF EXAM: 9:50 AM 2 views of the left femur were obtained. Alignment at the hip and knee is normal. Femur appears intact. No fracture seen. Left hip is intact. IMPRESSION: No acute bony abnormalities detected. Dictated by: Dictated on workstation # [id number]
--- NOTE | 2021-10-13 10:07 | Diagnostic Imaging Report ---
INDICATION: Left hip pain. FINDINGS: 2 views. Femoral head is in normal articulation with the acetabulum. Joint spaces are well maintained. There is hypertrophic sclerotic change along the acetabular rim. No fractures are seen. There are vascular calcifications noted. There is small amount of calcification of the soft tissues along the greater trochanter consistent with some calcific tendinopathy. 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 Dictated by: Dictated on workstation # [id number]
== END ==
LOC: RAD 09:25
PROVIDERS: ATTEND Family Medicine
DX: M16.12 Unilateral primary osteoarthritis, left hip (principal); W19.XXXA Unspecified fall, initial encounter
CPT/HCPCS: 73502; 73552

== ENCOUNTER 2022-09-12 09:33 | Outpatient (RCR) | payer MEDICARE, OTHER | END 2022-09-25 | disposition home or self-care (01) | LOC: ONC 09:33 | PROVIDERS: ATTEND Internal Medicine Hematology & Oncology | DX: C61 Malignant neoplasm of prostate (principal); I10 Essential (primary) hypertension | CPT/HCPCS: 84153 ==

== ENCOUNTER 2022-12-05 09:52 | Outpatient (RCR) | payer MEDICARE, OTHER ==
[2022-12-05 10:58] LABS: BILIRUBIN,URINE NEGATIVE (NEGATIVE); CLARITY,URINE CLEAR; COLOR,URINE YELLOW; GLUCOSE, URINE (UA) NEGATIVE (NEGATIVE); KETONES,URINE NEGATIVE (NEGATIVE); LEUKOCYTE ESTERASE ,URINE NEGATIVE (NEGATIVE); NITRITE,URINE NEGATIVE (NEGATIVE); PROTEIN,URINE NEGATIVE (NEGATIVE)
[2022-12-05 11:05] LABS: RBC,URINE RARE /HPF
[2022-12-05 11:06] LABS: BACTERIA,URINE NEGATIVE /HPF; SQUAMOUS EPITHELIAL CELL,UR RARE /HPF
== END 2022-12-26 | disposition home or self-care (01) ==
LOC: ONC 09:52
PROVIDERS: ATTEND Internal Medicine Hematology & Oncology
DX: C61 Malignant neoplasm of prostate (principal); I10 Essential (primary) hypertension
CPT/HCPCS: 36415; 81000; 84153

== ENCOUNTER 2023-03-06 10:10 | Outpatient (RCR) | payer MEDICARE, OTHER | END 2023-03-28 | disposition home or self-care (01) | LOC: ONC 10:10 | PROVIDERS: ATTEND Internal Medicine Hematology & Oncology | DX: C61 Malignant neoplasm of prostate (principal); I10 Essential (primary) hypertension | CPT/HCPCS: 84153; G0463; 36415; 99214 ==

== ENCOUNTER 2023-06-06 09:57 | Outpatient (RCR) | payer MEDICARE, OTHER ==
[~2023-06-06 09:57] MED LIST changes: -MECL-149 PO; +MECL-291 PO
== END 2023-06-27 | disposition home or self-care (01) ==
LOC: ONC 09:57
PROVIDERS: ATTEND Internal Medicine Hematology & Oncology
DX: C61 Malignant neoplasm of prostate (principal); I10 Essential (primary) hypertension
CPT/HCPCS: 84153